=== PATIENT | female | born 1965 | race Caucasian/White ===

== ENCOUNTER → 2017-05-07 | Outpatient (CLI) | payer OTHER ==
--- NOTE | 2017-05-07 09:28 | RAD ---
DATE: 05/07/2017 EXAM: MAMMO DELILAH SCREENING BILATERAL HISTORY: Routine screening COMPARISON: 03/21/2016 This study was interpreted with the benefit of Computerized Aided Detection (CAD). The breast parenchyma is heterogeneously dense, which could reduce sensitivity of mammography. Breast parenchyma level C. FINDINGS: 2-D and 3-D tomosynthesis imaging was performed in CC and MLO projections. There is a vague density seen posterolaterally in the right breast in the CC projection which was not evident on the previous study. This is also evident on CC tomogram image #21. A definite correlate is not identified on the oblique view. The findings raise the possibility of a developing mass, although normal fibroglandular tissue projected differently on a technical basis could be producing this appearance. No other new or enlarging breast densities are seen. There are tiny benign-appearing lymph node type densities in the axillary tail regions of the breasts. An old breast biopsy marker is present laterally in the left. No suspicious microcalcifications are seen. IMPRESSION: New suspicious density laterally in the right breast as described above. Spot compression and straight mediolateral diagnostic mammograms and possibly right breast ultrasound are suggested for further evaluation. BI-RADS CATEGORY: 0 INCOMPLETE: NEEDS ADDITIONAL IMAGING EVALUATION AND/OR PRIOR MAMMOGRAMS FOR COMPARISON. RECOMMENDED FOLLOW-UP: ADD ADDITIONAL IMAGING PQRS compliance statement: Patient information was entered into a reminder system with a target due date for the next mammogram. Mammography is a sensitive method for finding small breast cancers, but it does not detect them all and is not a substitute for careful clinical examination. A negative mammogram does not negate a clinically suspicious finding and should not result in delay in biopsying a clinically suspicious abnormality. "Our facility is accredited by the [employer] Mammography Program."
== END | disposition home or self-care (01) ==
LOC: MAMMO 08:09
PROVIDERS: ATTEND Nurse Practitioner Family
DX: Z12.31 Encounter for screening mammogram for malignant neoplasm of breast (principal)
CPT/HCPCS: 77063; G0202; 77067

== ENCOUNTER → 2017-05-25 | Outpatient (CLI) | payer OTHER ==
--- NOTE | 2017-05-25 11:16 | RAD ---
DATE: 05/25/2017 EXAM: DIGITAL DIAGNOSTIC RT HISTORY: Possible abnormality seen on screening COMPARISON: Screening examination 05/07/2017 FINDINGS: Breast Density: SCATTERED The breast parenchyma shows scattered fibroglandular densities. Breast parenchyma level B. Additional cone compression images were obtained as well as an ML view and rolled cc views. On the additional images no definite mass is seen in the findings, on the screening examination are most compatible with summation artifact. A single follow-up cc view of the right breast is suggested in 6 months to further document stability IMPRESSION: Probable benign findings BI-RADS CATEGORY: 3 PROBABLE BENIGN FINDING(S-SHORT INTERVAL FOLLOW-UP SUGGESTED RECOMMENDED FOLLOW-UP: 6M 6 MONTH FOLLOW-UP PQRS compliance statement: Patient information was entered into a reminder system with a target due date 11/22/2017 for the next mammogram. Mammography is a sensitive method for finding small breast cancers, but it does not detect them all and is not a substitute for careful clinical examination. A negative mammogram does not negate a clinically suspicious finding and should not result in delay in biopsying a clinically suspicious abnormality. "Our facility is accredited by the [employer] Mammography Program."
== END | disposition home or self-care (01) ==
LOC: US 10:03
PROVIDERS: ATTEND Nurse Practitioner Family
DX: R92.8 Other abnormal and inconclusive findings on diagnostic imaging of breast (principal)
CPT/HCPCS: G0206; 77065

== ENCOUNTER → 2018-04-28 | Outpatient (CLI) | payer OTHER ==
[2018-04-28 10:59] LABS: BASO # 0.1 x10^3/uL (0.0-0.2); BASO % 1 % (0-3); EOS # 0.2 x10^3/uL (0.0-0.7); EOS % 2 % (0-3); HEMATOCRIT 37.6 % (36.0-47.0); HEMOGLOBIN 12.8 g/dL (12.0-15.5); LYMPH # 1.8 x10^3/uL (1.0-4.8); LYMPH % 18 % (24-48); MEAN CORPUSCULAR HEMOGLOBIN 31 pg (25-35); MEAN CORPUSCULAR HGB CONC 34 g/dL (31-37); MEAN CORPUSCULAR VOLUME 92 fL (79-100); MONO # 0.5 x10^3/uL (0.0-1.1); MONO % 5 % (0-9); NEUT # 7.2 x10^3uL (1.8-7.7); NEUT % 74 % (31-73); PLATELET COUNT 348 x10^3/uL (140-400); RED BLOOD COUNT 4.08 x10^6/uL (3.50-5.40); RED CELL DISTRIBUTION WIDTH 13.4 % (11.5-14.5); WHITE BLOOD COUNT 9.8 x10^3/uL (4.0-11.0)
[2018-04-28 11:17] LABS: ALBUMIN 3.4 g/dL (3.4-5.0); ALBUMIN/GLOBULIN RATIO 0.9 (1.0-1.7); CALCIUM 9.7 mg/dL (8.5-10.1); CREATININE 1.3 mg/dL (0.6-1.0); POTASSIUM 3.6 mmol/L (3.5-5.1); TOTAL BILIRUBIN 0.3 mg/dL (0.2-1.0); TOTAL PROTEIN 7.4 g/dL (6.4-8.2)
[2018-04-28 11:21] LABS: BACTERIA,URINE FEW /HPF (0-FEW); BILIRUBIN,URINE NEG (NEG); CLARITY,URINE CLEAR; COLOR,URINE YELLOW; GLUCOSE,URINE NEG (NEG); HYALINE CASTS, URINE OCC /HPF; NITRITE,URINE NEG (NEG); RBC,URINE 0 /HPF (0-2); SQUAMOUS EPITHELIAL CELL,UR FEW /LPF; UROBILINOGEN,URINE 0.2 mg/dL (0.2 mg/dL); WBC,URINE RARE /HPF (0-4)
--- NOTE | 2018-04-28 17:23 | RAD ---
Examination: 2 views of the left hip HISTORY: History of chronic hip pain COMPARISON: None available FINDINGS: The left femoral head is within the acetabulum. There is mild joint space loss identified in the left hip joint. IMPRESSION: Mild degenerative changes left hip joint. Electronically signed by: Conrad Ramey MD (04/28/2018 5:20 PM) [id number]
--- NOTE | 2018-04-28 17:27 | RAD ---
EXAM: AP and lateral views of the right foot DATE: 04/28/2018 12:00 AM INDICATION: chronic pain no known injury COMPARISON: No Prior FINDINGS: No evidence of acute fracture or dislocation. Midfoot degenerative changes are seen with small osteophytes. Prominent posterior and plantar calcaneal enthesophytes. No ankle joint effusion. IMPRESSION: 1. No evidence of acute fracture or dislocation. 2. Calcaneal enthesopathy. 3. Midfoot degenerative changes are seen. Electronically signed by: Randall Ramos MD (04/28/2018 5:23 PM) [facility]
[2018-04-28 19:50] LABS: FREE T4 0.97 ng/dL (0.76-1.46); THYROID STIM HORMONE (TSH) 2.682 uIU/mL (0.358-3.740)
== END | disposition home or self-care (01) ==
LOC: LAB 09:44
DX: M16.12 Unilateral primary osteoarthritis, left hip (principal); M19.071 Primary osteoarthritis, right ankle and foot; M77.31 Calcaneal spur, right foot; M25.774 Osteophyte, right foot; E03.9 Hypothyroidism, unspecified; E87.6 Hypokalemia
CPT/HCPCS: 36415; 73502; 73620; 80053; 80061; 81001; 84439; 84443; 85025

== ENCOUNTER → 2018-08-13 | Outpatient (CLI) | payer OTHER ==
--- NOTE | 2018-08-13 16:44 | RAD ---
EXAM: Pelvic sonogram. HISTORY: Ovarian cyst on MRI. TECHNIQUE: Transabdominal and transvaginal sonographic imaging of the pelvis was performed. COMPARISON: None. FINDINGS: The uterus measures 10.5 x 5.9 x 5.6 cm transvaginally. The endometrial stripe measures 10 mm in thickness. There are nabothian cysts within the cervix. The right ovary measures 4.1 x 3.8 x 2.4 cm. The left ovary measures 6.2 x 4.9 x 6.1 cm. There is normal blood flow within both ovaries. There is a complex left ovarian cyst with internal septation or 2 adjacent cysts measuring 6.2 cm in maximum dimension. There is a complex cyst within the right ovary with internal septations or multiple adjacent cysts measuring 3.3 cm in maximum dimension. IMPRESSION: 1. Bilateral ovarian cysts, both of which are complex with internal septations or consistent multiple adjacent cysts. These measure 6.2 cm on the left and 3.3 cm on the right. Short-term imaging follow-up and correlation with a CA 125 serum tumor marker level can be performed in this likely near menopausal patient. 2. Prominent endometrial stripe, within normal limits for the reported premenopausal status of the patient. Electronically signed by: Ryanne Jones MD (08/13/2018 4:41 PM) [id number]
== END | disposition home or self-care (01) ==
LOC: US 12:47
PROVIDERS: ATTEND Physician Assistant Medical
DX: N83.292 Other ovarian cyst, left side (principal); N83.291 Other ovarian cyst, right side; N88.8 Other specified noninflammatory disorders of cervix uteri
CPT/HCPCS: 76830; 76856

== ENCOUNTER → 2019-04-11 | Outpatient (CLI) | payer OTHER ==
--- NOTE | 2019-04-11 10:21 | RAD ---
EXAM: Renal artery Doppler sonogram. HISTORY: Renal insufficiency. TECHNIQUE: Perez scale and color Doppler sonographic imaging of the kidneys and renal arteries with spectral waveform analysis was performed. COMPARISON: None. FINDINGS: The right kidney measures 9.2 cm [id number]. The left kidney measures 9.5 cm [id number]. No solid or cystic renal lesion is seen. There is no hydronephrosis. The peak systolic velocity within the right renal artery is 103 cm/s. The peak systolic velocity within the left renal artery is 150 cm/s. There are normal renal artery to aorta velocity ratios. IMPRESSION: 1. No Doppler evidence of greater than 60% stenosis within the renal arteries. 2. Unremarkable grayscale sonographic evaluation of the kidneys. Electronically signed by: Ryanne Jones MD (04/11/2019 10:18 AM) [email or web address]
== END | disposition home or self-care (01) ==
LOC: US 09:38
PROVIDERS: ATTEND Physician Assistant Medical
DX: N28.9 Disorder of kidney and ureter, unspecified (principal)
CPT/HCPCS: 76770

== ENCOUNTER → 2019-08-15 | Outpatient (CLI) | payer OTHER ==
[2019-08-15 13:31] LABS: BACTERIA,URINE FEW /HPF (0-FEW); BILIRUBIN,URINE NEG (NEG); CLARITY,URINE CLEAR; COLOR,URINE YELLOW; GLUCOSE,URINE 100 mg/dL (NEG); NITRITE,URINE NEG (NEG); SQUAMOUS EPITHELIAL CELL,UR MANY /LPF; UROBILINOGEN,URINE 0.2 mg/dL (0.2 mg/dL)
[2019-08-15 13:32] LABS: HYALINE CASTS, URINE MOD /HPF
[2019-08-16 00:06] LABS: HEMOGLOBIN A1C 5.4 % (4.8-5.6)
[2019-08-16 14:29] LABS: FREE T4 0.98 ng/dL (0.76-1.46); THYROID STIM HORMONE (TSH) 1.386 uIU/mL (0.358-3.740)
== END | disposition home or self-care (01) ==
LOC: LAB 10:06
PROVIDERS: ATTEND Physician Assistant Medical
DX: N39.0 Urinary tract infection, site not specified (principal); R73.09 Other abnormal glucose; E03.9 Hypothyroidism, unspecified
CPT/HCPCS: 36415; 81001; 83036; 84439; 84443; 84481; 87086

== ENCOUNTER → 2019-09-26 | Outpatient (CLI) | payer OTHER | END | disposition home or self-care (01) | LOC: LAB 11:34 | PROVIDERS: ATTEND Orthopaedic Surgery | DX: Z79.01 Long term (current) use of anticoagulants (principal); Z96.642 Presence of left artificial hip joint | CPT/HCPCS: 36415; 85610 ==

== ENCOUNTER → 2019-09-27 | Outpatient (CLI) | payer OTHER ==
[2019-09-27 11:15] LABS: BASO # 0.1 x10^3/uL (0.0-0.2); BASO % 1 % (0-3); EOS # 0.4 x10^3/uL (0.0-0.7); EOS % 5 % (0-3); HEMOGLOBIN 12.4 g/dL (12.0-15.5); LYMPH # 2.3 x10^3/uL (1.0-4.8); LYMPH % 33 % (24-48); MEAN CORPUSCULAR HEMOGLOBIN 30 pg (25-35); MEAN CORPUSCULAR HGB CONC 34 g/dL (31-37); MEAN CORPUSCULAR VOLUME 91 fL (79-100); MONO # 0.4 x10^3/uL (0.0-1.1); MONO % 6 % (0-9); NEUT # 3.8 x10^3uL (1.8-7.7); NEUT % 55 % (31-73); PLATELET COUNT 358 x10^3/uL (140-400); RED BLOOD COUNT 4.09 x10^6/uL (3.50-5.40); RED CELL DISTRIBUTION WIDTH 13.7 % (11.5-14.5)
[2019-09-27 11:21] LABS: ALBUMIN/GLOBULIN RATIO 0.9 (1.0-1.7); CALCIUM 9.5 mg/dL (8.5-10.1); CREATININE 1.3 mg/dL (0.6-1.0); GFR 42.7; POTASSIUM 3.6 mmol/L (3.5-5.1); TOTAL BILIRUBIN 0.3 mg/dL (0.2-1.0); TOTAL PROTEIN 8.4 g/dL (6.4-8.2)
== END | disposition home or self-care (01) ==
LOC: PMG 10:28
PROVIDERS: ATTEND Physician Assistant Medical
DX: D64.9 Anemia, unspecified (principal); R73.09 Other abnormal glucose
CPT/HCPCS: 36415; 80053; 85025

== ENCOUNTER → 2020-07-27 | Outpatient (CLI) | payer OTHER ==
--- NOTE | 2020-07-27 17:42 | RAD ---
Left hip 2 views INDICATION: Left hip and back pain COMPARISON: Left hip x-rays of 04/28/2018. 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 No fracture or aggressive appearing osseous lesions are seen. The soft tissues are unremarkable. IMPRESSION: Uncomplicated appearance to an interval left total hip arthroplasty. No acute superimposed osseous abnormality. L spine 5 views INDICATION: Left hip and back pain. COMPARISON: No relevant comparisons currently available. 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 There is no fracture or malalignment. No aggressive appearing osseous lesions. No bony foraminal stenoses and no pars defects identified. There is mild exaggeration of normal lumbar lordosis. No listhesis. There is suggestion of facet hypertrophic changes in the lower lumbar spine notably at L4-L5 and L5-S1. Discs show mild narrowing at L4-L5 and to a lesser extent at L5-S1. The included soft tissues show cholecystectomy clips and otherwise are unremarkable. IMPRESSION: No acute osseous abnormality in the lumbar spine. There are degenerative changes in the lower lumbar spine most conspicuously at L4-L5 and at L5-S1, involving the discs and facet joint. Electronically signed by: Princess Miller MD (07/27/2020 5:39 PM) [id number]
== END ==
LOC: PMG 11:49
PROVIDERS: ATTEND Physician Assistant
DX: M47.817 Spondylosis without myelopathy or radiculopathy, lumbosacral region (principal); M25.552 Pain in left hip; M48.07 Spinal stenosis, lumbosacral region; Z90.49 Acquired absence of other specified parts of digestive tract; Z96.642 Presence of left artificial hip joint
CPT/HCPCS: 72110; 73502

== ENCOUNTER → 2021-01-25 | Outpatient (CLI) | payer OTHER ==
[2021-01-25 11:13] LABS: BASO # 0.1 x10^3/uL (0.0-0.2); BASO % 1 % (0-3); EOS # 0.3 x10^3/uL (0.0-0.7); EOS % 3 % (0-3); HEMATOCRIT 39.1 % (36.0-47.0); LYMPH # 2.1 x10^3/uL (1.0-4.8); LYMPH % 21 % (24-48); MEAN CORPUSCULAR HEMOGLOBIN 31 pg (25-35); MEAN CORPUSCULAR HGB CONC 33 g/dL (31-37); MEAN CORPUSCULAR VOLUME 93 fL (79-100); MONO # 0.6 x10^3/uL (0.0-1.1); MONO % 6 % (0-9); NEUT # 6.9 x10^3uL (1.8-7.7); NEUT % 70 % (31-73); PLATELET COUNT 331 x10^3/uL (140-400); RED CELL DISTRIBUTION WIDTH 14.5 % (11.5-14.5)
[2021-01-25 11:39] LABS: ALBUMIN 3.7 g/dL (3.4-5.0); ALBUMIN/GLOBULIN RATIO 0.9 (1.0-1.7); CALCIUM 9.4 mg/dL (8.5-10.1); CREATININE 1.3 mg/dL (0.6-1.0); GFR 42.5; POTASSIUM 4.1 mmol/L (3.5-5.1); TOTAL BILIRUBIN 0.3 mg/dL (0.2-1.0); TOTAL PROTEIN 7.7 g/dL (6.4-8.2)
[2021-01-25 19:50] LABS: FREE T4 0.88 ng/dL (0.76-1.46); THYROID STIM HORMONE (TSH) 2.871 uIU/mL (0.358-3.740)
== END ==
LOC: LAB 10:11
PROVIDERS: ATTEND Physician Assistant Medical
DX: D64.9 Anemia, unspecified (principal); I10 Essential (primary) hypertension; E03.9 Hypothyroidism, unspecified; R94.4 Abnormal results of kidney function studies; R73.09 Other abnormal glucose; F41.8 Other specified anxiety disorders
CPT/HCPCS: 36415; 80053; 80061; 82728; 83540; 83550; 84439; 84443; 85025